=== PATIENT | female | born 1955 | race Two or more races ===

== ENCOUNTER 2019-06-20 10:43 | Inpatient (IN) | payer MEDICARE, MEDICAID ==
[~2019-06-20] VITALS: Ht 162.6 cm; Wt 90.8 kg
[2019-06-20] MEDS ORDERED: SODIUM CHLORIDE 0.9% 1,000 ML IV ONE ×2 (11:08)
[2019-06-20] MEDS ORDERED: MORPHINE SULFATE 4 MG/ML SYR/VIAL IV ONE (11:15)
[2019-06-20] MEDS ORDERED: ONDANSETRON HCL 4 MG/2 ML VIAL IV ONE (11:15)
[2019-06-20 11:57] LABS: Basophils # (auto) 0 uL; Basophils % (auto) 0.2 % (0.0-2.0); Eosinophils # (auto) 0 uL; Eosinophils % (auto) 0.2 % (0.0-7.0); Hematocrit 36.3 % (36.0-46.0); Lymphocytes # (auto) 0.8 uL; Lymphocytes % (auto) 11.3 % (10.0-50.0); Mean Corpuscular Hemoglobin 29.5 pg (28.0-32.0); Mean Corpuscular Hgb Conc. 32.9 g/dL (32.0-36.0); Mean Corpuscular Volume 89.4 fL (80.0-100.0); Monocytes # (auto) 0.4 uL; Neutrophils # (auto) 6.2 uL; Neutrophils % (auto) 83.3 % (37.0-80.0); Nucleated Red Blood Cells % 0.1 %; Platelet Count (auto) 129 10^3/uL (140-450); Red Blood Cells 4.06 10^6/uL (4.0-5.20); Red Cell Distribution Width 14.3 % (11.8-14.3); White Blood Cell 7.4 10^3/uL (4.4-10.8)
[2019-06-20 12:06] LABS: Albumin 3.8 g/dL (3.4-5.0); Calcium 9.6 mg/dL (8.5-10.1); Potassium 3.9 mmol/L (3.5-5.1)
[2019-06-20 12:11] LABS: BUN/Creatinine Ratio 17.2; Bilirubin, Total 0.8 mg/dL (0.2-1.0)
[2019-06-20] MEDS ORDERED: DEXTROSE (50%) 50ML SYRG IV PRN (13:45)
[2019-06-20] MEDS ORDERED: cefTRIAXone 1GM/50ML D5W 50 ML IV ONE (13:45)
[2019-06-20] MEDS ORDERED: MORPHINE SULF INJ 2 MG/ML SYRINGE 1ML IV PRN (13:45)
[2019-06-20] MEDS: SODIUM CHLORIDE 0.9% 1,000 ML IV SCH ×2 (14:08→23:39)
[2019-06-20 14:40] VITALS: BP_SYST 162; BP_SYST 174; BP_DIAS 69; BP_DIAS 73
[2019-06-20 15:28] LABS: Urine Bacteria NONE SEEN /hpf (None Seen); Urine Blood Negative /uL (Negative); Urine Specific Gravity 1.007 (1.001-1.035); Urine WBC <1 /hpf (0 - 5)
[2019-06-20] MEDS: metroNIDAZOLE 500MG/100ML 100 ML IV SCH ×2 (16:03→21:28)
[2019-06-20] MEDS: FAMOTIDINE (10MG/ML) 2ML VL IV SCH ×2 (16:04→21:28)
[2019-06-20] MEDS: PROMETHAZINE HCL 25 MG/ML 1ML IV PRN (16:22)
[2019-06-20 17:00] VITALS: BP_SYST 152; BP_SYST 162; BP_DIAS 65; BP_DIAS 69
[2019-06-20] MEDS: ACCU-CHEK COMFORT CURVE STRIP VI SCH ×2 (17:49→23:40)
[2019-06-20] MEDS: InsuLIN REG 1unit/0.01ml Soln (100units/ml) SC SCH ×2 (17:52→23:39)
[2019-06-20 20:30] VITALS: BP 106/61
[2019-06-20 22:00] VITALS: BP 106/61
[2019-06-21 05:00] VITALS: BP 148/65
[2019-06-21] MEDS: metroNIDAZOLE 500MG/100ML 100 ML IV SCH ×3 (05:46→22:01)
[2019-06-21] MEDS: ACCU-CHEK COMFORT CURVE STRIP VI SCH ×4 (05:46→23:55)
[2019-06-21] MEDS: InsuLIN REG 1unit/0.01ml Soln (100units/ml) SC SCH ×4 (05:46→23:56)
[2019-06-21 06:05] LABS: Basophils # (auto) 0 uL; Basophils % (auto) 0.2 % (0.0-2.0); Eosinophils # (auto) 0 uL; Eosinophils % (auto) 0.3 % (0.0-7.0); Hematocrit 33.9 % (36.0-46.0); Hemoglobin 11.5 g/dL (12.2-16.2); Lymphocytes # (auto) 1.2 uL; Lymphocytes % (auto) 20.2 % (10.0-50.0); Mean Corpuscular Hgb Conc. 33.8 g/dL (32.0-36.0); Mean Corpuscular Volume 88.6 fL (80.0-100.0); Monocytes # (auto) 0.4 uL; Monocytes % (auto) 7.4 % (0.0-12.0); Neutrophils # (auto) 4.2 uL; Neutrophils % (auto) 71.9 % (37.0-80.0); Platelet Count (auto) 116 10^3/uL (140-450); Red Blood Cells 3.83 10^6/uL (4.0-5.20); Red Cell Distribution Width 14.4 % (11.8-14.3); White Blood Cell 5.9 10^3/uL (4.4-10.8)
[2019-06-21 06:36] LABS: Albumin 3.2 g/dL (3.4-5.0); Calcium 8.8 mg/dL (8.5-10.1); Potassium 3.8 mmol/L (3.5-5.1)
[2019-06-21 06:40] LABS: BUN/Creatinine Ratio 14.7; Bilirubin, Total 0.6 mg/dL (0.2-1.0)
[2019-06-21 09:00] VITALS: BP 119/61
[2019-06-21] MEDS: MORPHINE SULF INJ 2 MG/ML SYRINGE 1ML IV PRN (10:07)
[2019-06-21] MEDS: cefTRIAXone 1GM/50ML D5W 50 ML IV SCH (10:07)
[2019-06-21] MEDS: FAMOTIDINE (10MG/ML) 2ML VL IV SCH ×2 (10:07→22:01)
[2019-06-21] MEDS: SODIUM CHLORIDE 0.9% 1,000 ML IV SCH ×2 (10:07→19:40)
[2019-06-21] MEDS: PROMETHAZINE HCL 25 MG/ML 1ML IV PRN (10:08)
[2019-06-21 13:00] VITALS: BP 124/68
[2019-06-21 17:00] VITALS: BP 132/69
[2019-06-21 20:25] VITALS: BP 132/62
[2019-06-21 22:00] VITALS: BP 132/62
[2019-06-22 05:00] VITALS: BP 127/60
[2019-06-22] MEDS: SODIUM CHLORIDE 0.9% 1,000 ML IV SCH (05:38)
[2019-06-22] MEDS: InsuLIN REG 1unit/0.01ml Soln (100units/ml) SC SCH ×2 (05:39→12:22)
[2019-06-22] MEDS: ACCU-CHEK COMFORT CURVE STRIP VI SCH ×2 (05:39→12:21)
[2019-06-22] MEDS: metroNIDAZOLE 500MG/100ML 100 ML IV SCH (05:39)
[2019-06-22 09:00] VITALS: BP 133/91
[2019-06-22] MEDS: cefTRIAXone 1GM/50ML D5W 50 ML IV SCH (09:23)
[2019-06-22] MEDS: FAMOTIDINE (10MG/ML) 2ML VL IV SCH (09:24)
[2019-06-22] MEDS: MORPHINE SULF INJ 2 MG/ML SYRINGE 1ML IV PRN (09:24)
[2019-06-22] MEDS: PROMETHAZINE HCL 25 MG/ML 1ML IV PRN (09:24)
[2019-06-22 13:00] VITALS: BP 149/58
== END 2019-06-22 14:00 | disposition home or self-care (01) | DRG 439 ==
LOC: ER 10:43 → OVERFLOW 10:44 → CENTRAL 14:30
PROVIDERS: ADMIT Internal Medicine; ATTEND Physician Assistant
DX: K86.3 Pseudocyst of pancreas (principal); E87.1 Hypo-osmolality and hyponatremia; E11.65 Type 2 diabetes mellitus with hyperglycemia; D69.6 Thrombocytopenia, unspecified; I10 Essential (primary) hypertension; E78.5 Hyperlipidemia, unspecified; Z82.49 Family history of ischemic heart disease and other diseases of the circulatory system; Z83.3 Family history of diabetes mellitus; Z90.49 Acquired absence of other specified parts of digestive tract
CPT/HCPCS: 36415; 71046; 74176; 80053; 81001; 82150; 82962; 83036; 83690; 84484; 85025; 93005; 96361; 96374; 96375; G0378; J0696; J1815; J2405; J3490